=== PATIENT | female | born 1990 | race African-American/Black ===

== ENCOUNTER 2016-09-26 13:21 | Outpatient (CLI) | payer MEDICAID ==
[2016-09-26 14:04] LABS: APPEARANCE,URINE CLOUDY; BILIRUBIN,URINE NEGATIVE (NEGATIVE); GLUCOSE, URINE NEGATIVE (NEGATIVE); KETONES,URINE NEGATIVE (NEGATIVE); LEUKOCYTE ESTERASE,URINE LARGE (NEGATIVE); NITRITE,URINE NEGATIVE (NEGATIVE); PROTEIN,URINE 30 mg/dL (NEGATIVE); URINE SPECIFIC GRAVITY 1.026; UROBILINOGEN,URINE NEGATIVE mg/dL (<2.0)
[2016-09-26 14:23] LABS: URINE BARBITURATES SCREEN NEGATIVE; URINE METHADONE SCREEN NEGATIVE; URINE PHENCYCLIDINE SCREEN NEGATIVE
[2016-09-26] MEDS ORDERED: CEFTRIAXONE INJ 1000 MG VIAL ONE (14:50)
[2016-09-26] MEDS ORDERED: LIDOCAINE 1% INJ-PF (10 MG/ML) 30 ML SDV ONE (14:50)
--- NOTE | 2016-09-26 15:10 | Non Stress Test Report ---
Non Stress Test Datetime Report Generated by CPN: 09/26/2016 15:10 DEMOGRAPHIC EGA NST: 32.1 INDICATION Indication for Study: Other Indication for Study (NST) Other: Labor Check MONITORING Monitor Explained: Monitor Explained; Test Explained; Patient Verbalized Understanding Time on Monitor: 09/26/2016 13:40 Time off Monitor: 09/26/2016 15:08 NST Duration: 88 NST INTERVENTIONS NST Interventions: PO Hydration; Reposition Patient Physician Notified NST: Dr. Higuera Physician Notified NST: Kalen BABY A: [id number] BABY A Movement : Present Contraction Frequency : occasional FHR Baseline : 145 Accelerations : 15X15 Decelerations : None Decelerations : None Variability : Moderate 6-25bpm NST Review: Meets Criteria for Reactive NST NST Review and Verified By : Moses Crum RN NST Results: Reactive NST REPORT Report Trigger: Send Report
[2016-09-26] MEDS ORDERED: CEFTRIAXONE INJ 250 MG VIAL IM ONE (15:30)
[2016-09-26] MEDS ORDERED: HYDROXYZINE PAMOATE 50 MG CAPSULE PO ONE (15:30)
[2016-09-26] MEDS ORDERED: LIDOCAINE 1% INJ-PF (10 MG/ML) 30 ML SDV INJ ONE (15:30)
--- NOTE | 2016-09-27 12:34 | Antepartum Discharge Summary ---
Antepartum DC Datetime Report Generated by CPN: 09/27/2016 12:33 DIET/ACTIVITY/RESTRICTIONS Diet: Regular (09/26/2016 15:46:Evelyn Cabrera RN) Activity: Normal Activity (09/26/2016 15:46:Evelyn Cabrera RN) TEACHING/INSTRUCTIONS/REFERRALS Instructions Given To: Patient/Family (09/26/2016 15:46:Evelyn Cabrera RN) Referrals: None (09/26/2016 15:46:Evelyn Cabrera RN) Educational Materials- Other: UTI (09/26/2016 15:46:Evelyn Cabrera RN) DISCHARGE INFORMATION Discharged AMA: No (09/26/2016 15:46:Evelyn Cabrera RN) Discharge Date/Time: 09/26/2016 15:43 (09/26/2016 15:46:Evelyn Cabrera RN) Discharged To: Home (09/26/2016 15:46:Evelyn Cabrera RN) Discharge Provider Name: Dr. Higuera (09/26/2016 15:46:Evelyn Cabrera RN) Accompanied By: family (09/26/2016 15:46:Evelyn Cabrera RN) Discharge Method: Ambulatory (09/26/2016 15:46:Evelyn Cabrera RN) Condition: Stable (09/26/2016 15:46:Evelyn Cabrera RN) FOLLOW UP INFORMATION Follow Up With: [facility] (09/26/2016 15:46:Evelyn Cabrera RN) Follow Up On: As Scheduled (09/26/2016 15:46:Evelyn Cabrera RN) Comments: Pt states pain 5/5, refusing any pain medicine. Pt noted to be laughing and talking with friends and on cell phone. (09/26/2016 15:46:Evelyn Cabrera RN)
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
--- NOTE | 2016-09-27 12:34 | L&D Flow Sheet ---
LD Flowsheet Datetime Report Generated by CPN: 09/27/2016 12:34 Datetime: 09/26/2016 15:43 Communication Communication Comments: Pt ambulated off floor in stable condition (Evelyn Cabrera, RN) Datetime: 09/26/2016 15:38 Medications Medication Comments: 250mg Rocephin IM in left dorsogluteal site. Pt refusing Vistiril at this time. Pt states she cannot take pills and will just throw them up. (Evelyn Cabrera, RN) Datetime: 09/26/2016 15:06 Communication Communication Comments: Monitors removed (Evelyn Cabrera, RN) Datetime: 09/26/2016 15:00 Uterine Activity Monitor Mode: External (Evelyn Cabrera, RN) Frequency (min): 1 (Evelyn Cabrera, RN) Quality: Mild (Evelyn Cabrera, RN) Duration (sec): 40 (Evelyn Cabrera, RN) Duration Criteria: Less than Two 120 Second Contractions (Evelyn Cabrera, RN) Pattern: Normal: <= 5 Contractions in 10 Minutes (Evelyn Cabrera, RN) Resting Tone (Palpate): Relaxed (Evelyn Cabrera, RN) Assessment A Monitor Mode: External US (Evelyn Rick, RN) FHR Baseline Rate : 145 (Evelyn Cabrera, RN) Variability: Moderate 6-25 bpm (Evelyn Cabrera, RN) Accelerations: 15X15 (Evelyn Cabrera, RN) Decelerations: None (Evelyn Cabrera, RN) Datetime: 09/26/2016 14:30 Uterine Activity Monitor Mode: External (Evelyn Rick, RN) Frequency (min): 1 (Evelyn Cabrera, RN) Quality: Mild (Evelyn Rick, RN) Duration (sec): 40 (Evelyn Rick, RN) Resting Tone (Palpate): Relaxed (Evelyn Cabrera, RN) Assessment A Monitor Mode: External US (Evelyn Cabrera, RN) FHR Baseline Rate : 145 (Evelyn Cabrera, RN) Variability: Moderate 6-25 bpm (Evelyn Cabrera, RN) Accelerations: None (Evelyn Cabrera, RN) Decelerations: None (Evelyn Cabrera, RN) Datetime: 09/26/2016 14:28 Patient Care Comments: apple juice given (Evelyn Cabrera, RN) Datetime: 09/26/2016 14:21 Patient Care Patient Position/Activity: Right Lateral (Evelyn Cabrera, RN) Datetime: 09/26/2016 14:20 Communication Communication Comments: Report given to Dr. Kalen. Orders to give 250mg Rocephin IM and 50mg Vistaril PO and send patient home after strip is reactive (Evelyn Cabrera, RN) Datetime: 09/26/2016 14:04 I/O Interventions: Popsicle (Evelyn Cabrera, RN) Datetime: 09/26/2016 13:44 Pain Pain Scale: 5 (Evelyn Cabrera RN) Pain Presence: Constant (Evelyn Cabrera RN) Pain Type: Sharp (Evelyn Cabrera RN) Pain Location: Perineum (Evelyn Cabrera RN) Pain Assessment Comments: Pt states her pain is 5/5. Pt noted to be laughing and talking freely and texting on phone. (Evelyn Cabrera, RN) Vaginal Exam Vaginal Bleeding: None (Evelyn Cabrera, RN) Maternal Assessment Level of Consciousness: Fully Conscious (Evelyn Cabrera RN) DTR's/Clonus: DTRs 2+; No Clonus (Evelyn Cabrera RN) Headache: Denies (Evelyn Cabrera RN) Breath Sounds, Left: Clear and Equal (Evelyn Cabrera RN) Breath Sounds, Right: Clear and Equal (Evelyn Cabrera RN) Nausea/Vomiting: Denies (Evelyn Cabrera RN) RUQ Epigastric Pain: Denies (Evelyn Cabrera, RN) Teaching Instructional Method: Verbal; Patient Instructed; Family/Support Person Instructed; Verbalized Understanding (Evelyn Cabrera RN) Plan of Care: Plan of Care Discussed (Evelyn Cabrera RN) Unit Routine: [place] to Room; Call Alvarez; Bed; Handwashing; Monitoring; Bathroom Privileges (Evelyn Cabrera RN) Datetime: 09/26/2016 13:42 Vital Signs NBP Sys/Aaliyah/Mean (mmHg): 110 (QS system process) : 59 (QS system process) : 72 (QS system process) Pulse: 102 (QS system process) Datetime: 09/26/2016 13:40 Patient Care Patient Position/Activity: Left Lateral (Evelyn Cabrera RN)
--- NOTE | 2016-09-27 12:34 | L&D Current Admission ---
Current Admit Datetime Report Generated by CPN: 09/27/2016 12:34 ADMISSION INFORMATION Chief Complaint: Pelvic pain (09/26/2016 13:44:MELIA Moore
--- NOTE | 2016-09-27 12:35 | L&D Discharge Summary ---
OB Discharge Summary Datetime Report Generated by CPN: 09/27/2016 12:35 DISCHARGE DIAGNOSIS Diagnosis/Symptoms: Urinary Tract Infection Gestation: 32.1 Number of Babies in Womb: 1 Parity: 1 DIET/ACTIVITY/RESTRICTIONS Diet: Regular Activity: Normal Activity TEACHING/INSTRUCTIONS/REFERRALS Instructions Given To: Patient/Family Referrals: None Educational Materials- Other: UTI DISCHARGE INFORMATION Discharged AMA: No Discharge Date/Time: 09/26/2016 15:43 Discharged To: Home Discharge Provider Name: Dr. Higuera Accompanied By: family Discharge Method: Ambulatory Condition: Stable FOLLOW UP INFORMATION Follow Up With: [facility] Follow Up On: As Scheduled Comments: Pt states pain 5/5, refusing any pain medicine. Pt noted to be laughing and talking with friends and on cell phone.
--- NOTE | 2016-09-28 06:16 | L&D Current Admission ---
Current Admit Datetime Report Generated by CPN: 09/28/2016 06:00 ADMISSION INFORMATION Chief Complaint: Pelvic pain (09/26/2016 13:44:MELIA Moore
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
--- NOTE | 2016-09-29 06:15 | L&D Current Admission ---
Current Admit Datetime Report Generated by CPN: 09/29/2016 06:00 ADMISSION INFORMATION Chief Complaint: Pelvic pain (09/26/2016 13:44:MELIA Moore
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
--- NOTE | 2016-09-30 06:21 | L&D Current Admission ---
Current Admit Datetime Report Generated by CPN: 09/30/2016 06:00 ADMISSION INFORMATION Chief Complaint: Pelvic pain (09/26/2016 13:44:MELIA Moore
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
--- NOTE | 2016-10-01 06:22 | L&D Current Admission ---
Current Admit Datetime Report Generated by CPN: 10/01/2016 06:00 ADMISSION INFORMATION Chief Complaint: Pelvic pain (09/26/2016 13:44:MELIA Moore
--- NOTE | 2016-10-02 06:24 | L&D Current Admission ---
Current Admit Datetime Report Generated by CPN: 10/02/2016 06:00 ADMISSION INFORMATION Chief Complaint: Pelvic pain (09/26/2016 13:44:MELIA Moore
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
--- NOTE | 2016-10-03 06:22 | L&D Current Admission ---
Current Admit Datetime Report Generated by CPN: 10/03/2016 06:00 ADMISSION INFORMATION Chief Complaint: Pelvic pain (09/26/2016 13:44:MELIA Moore
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
--- NOTE | 2016-10-04 06:23 | L&D Current Admission ---
Current Admit Datetime Report Generated by CPN: 10/04/2016 06:00 ADMISSION INFORMATION Chief Complaint: Pelvic pain (09/26/2016 13:44:MELIA Moore
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
--- NOTE | 2016-10-05 06:23 | L&D Current Admission ---
Current Admit Datetime Report Generated by CPN: 10/05/2016 06:00 ADMISSION INFORMATION Chief Complaint: Pelvic pain (09/26/2016 13:44:MELIA Moore
== END 2016-09-26 15:43 | disposition home or self-care (01) ==
LOC: LC 13:21
PROVIDERS: ATTEND Obstetrics & Gynecology
PROC: 4A1HXCZ Monitoring of Products of Conception, Cardiac Rate, External Approach (ICD-10-PCS; principal; 2016-09-26)
DX: O23.43 Unspecified infection of urinary tract in pregnancy, third trimester (principal); Z3A.32 32 weeks gestation of pregnancy
CPT/HCPCS: 59025; 81001; G0479; J3490; J0696; 80307

== ENCOUNTER 2016-11-11 14:47 | Outpatient (CLI) | payer MEDICAID ==
[2016-11-11 15:36] LABS: APPEARANCE,URINE CLEAR; BILIRUBIN,URINE NEGATIVE (NEGATIVE); GLUCOSE, URINE NEGATIVE (NEGATIVE); KETONES,URINE 20 mg/dL (NEGATIVE); LEUKOCYTE ESTERASE,URINE SMALL (NEGATIVE); NITRITE,URINE NEGATIVE (NEGATIVE); PROTEIN,URINE NEGATIVE (NEGATIVE); UROBILINOGEN,URINE NEGATIVE mg/dL (<2.0)
[2016-11-11 15:40] LABS: HEMATOCRIT 34.5 % (36.0-47.0); HEMOGLOBIN 11.9 g/dL (12.0-15.5); HGB HCT DIFFERENCE 1.2; MEAN CORPUSCULAR HEMOGLOBIN 32.1 pg (27.0-33.4); MEAN CORPUSCULAR HGB CONC 34.4 g/dL (32.0-36.0); MEAN CORPUSCULAR VOLUME 93 fl (80-97); RED CELL DISTRIBUTION WIDTH 13.1 % (11.5-14.0); WHITE BLOOD COUNT 5.4 10^3/uL (4.0-10.5)
[2016-11-11 15:55] LABS: ALANINE AMINOTRANSFERASE 62 U/L (9-52); ALBUMIN 3.6 g/dL (3.5-5.0); ALKALINE PHOSPHATASE 88 U/L (38-126); ANION GAP 10 (5-19); ASPARTATE AMINO TRANSFERASE 55 U/L (14-36); BILIRUBIN,TOTAL 0.5 mg/dL (0.2-1.3); BLOOD UREA NITROGEN 5 mg/dL (7-20); CALCIUM 9.9 mg/dL (8.4-10.2); CARBON DIOXIDE 23 mmol/L (22-30); CHLORIDE 100 mmol/L (98-107); CREATININE RESULT 0.69 mg/dL (0.52-1.25); GLUCOSE 76 mg/dL (75-110); LDH 398 U/L (313-618); POTASSIUM 4.2 mmol/L (3.6-5.0); SODIUM 133.1 mmol/L (137-145); TOTAL PROTEIN 7.3 g/dL (6.3-8.2); URIC ACID 3.6 mg/dL (2.5-6.2)
[2016-11-11 15:58] LABS: URINE BARBITURATES SCREEN NEGATIVE; URINE METHADONE SCREEN NEGATIVE; URINE OPIATES LOW NEGATIVE; URINE PHENCYCLIDINE SCREEN NEGATIVE
--- NOTE | 2016-11-11 16:00 | L&D Flow Sheet ---
LD Flowsheet Datetime Report Generated by CPN: 11/11/2016 16:00 Datetime: 11/11/2016 15:49 NBP Sys/Aaliyah/Mean (mmHg): 125 (QS system process) : 58 (QS system process) : 84 (QS system process) Pulse: 101 (QS system process) Communication LaborFlag: Antepartum (QS system process) Datetime: 11/11/2016 15:35 NBP Sys/Aaliyah/Mean (mmHg): 124 (QS system process) : 65 (QS system process) : 90 (QS system process) Pulse: 84 (QS system process) Communication LaborFlag: Antepartum (QS system process) Datetime: 11/11/2016 15:21 Pain Pain Scale: 2 (Cristiana Paintingalivia, ) [facility] Pain Type: Ache ([facility], ) Pain Location: Head ([facility], ) Pain Goal: 0 ([facility], ) Pain Relief Measures: Comfort Measures ([facility]) [facility]: [facility] Bleeding: None [facility] Maternal Assessment Level of Consciousness: Fully Conscious [facility]) DTR's/Clonus: DTRs 2+; No Clonus ([facility], ) Headache: Frontal [facility] Breath Sounds, Left: Clear and Equal (Cristiana Paintingfalivia, RN) Breath Sounds, Right: Clear and Equal (Cristiana Mertfalivia, RN) Nausea/Vomiting: Denies (Cristiana Calvillo, RN) RUQ Epigastric Pain: Denies (Cristiana Paintingfalivia, RN) Communication LaborFlag: Antepartum (QS system process) Datetime: 11/11/2016 15:19 NBP Sys/Aaliyah/Mean (mmHg): 120 (QS system process) : 58 (QS system process) : 83 (QS system process) Pulse: 90 (QS system process) Respirations: 16 (Cristiana Calvillo, RN) Temperature (F): 99.9 (Cristiana Calvillo, RN) Temperature (C): 37.7 (QS system process) Temperature Route: Oral (Cristianathomas Calvillo, RN) Communication LaborFlag: Antepartum (QS system process) Datetime: 11/11/2016 15:15 Patient Position/Activity: Right Lateral; Semi-Fowlers (Cristiana Marhefka, RN) Datetime: 11/11/2016 15:14 Patient Care IV/Blood Work: Labs Drawn (Cristiana Calvillo, RN) Datetime: 11/11/2016 15:00 Vital Signs Stage of : Antepartum (Cristiana Calvillo, RN)
--- NOTE | 2016-11-11 16:22 | Non Stress Test Report ---
Non Stress Test Datetime Report Generated by CPN: 11/11/2016 16:21 DEMOGRAPHIC EGA NST: 38.5 INDICATION Indication for Study: Ordered by Provider MONITORING Monitor Explained: Monitor Explained; Test Explained; Patient Verbalized Understanding Time on Monitor: 11/11/2016 15:15 NST INTERVENTIONS NST Interventions: PO Hydration Physician Notified NST: J. Verma, CNM BABY A: [id number] BABY A Movement : Present Contraction Frequency : X1 FHR Baseline : 145 Accelerations : 15X15 Decelerations : None Variability : Moderate 6-25bpm NST Review: Meets Criteria for Reactive NST NST Review and Verified By : Rome Mcpherson RNC NST Results: Reactive NST REPORT Report Trigger: Send Report
[2016-11-11 16:31] LABS: BAND NEUTROPHILS % (MANUAL) 5 % (3-5); BASOPHILS % (MANUAL) 1 % (0-2); EOSINOPHILS % (MANUAL) 1 % (0-6); LYMPHOCYTES % (MANUAL) 8 % (13-45); TOTAL CELLS COUNTED 100
[2016-11-11 16:32] LABS: POLYCHROMASIA SLIGHT; TOXIC VACUOLATION PRESENT
== END 2016-11-11 16:34 | disposition home or self-care (01) ==
LOC: LC 14:47
PROVIDERS: ATTEND Obstetrics & Gynecology
PROC: 4A1HXCZ Monitoring of Products of Conception, Cardiac Rate, External Approach (ICD-10-PCS; principal; 2016-11-11)
DX: O13.3 Gestational [pregnancy-induced] hypertension without significant proteinuria, third trimester (principal); Z3A.38 38 weeks gestation of pregnancy
CPT/HCPCS: 36415; 59025; 80053; 80307; 81001; 83615; 84550; 85025

== ENCOUNTER 2016-11-14 10:23 | Inpatient (IN) | payer MEDICAID ==
[2016-11-14] MEDS ORDERED: LIDOCAINE 1% INJ-PF (10 MG/ML) 30 ML SDV ONE (10:53)
[2016-11-14] MEDS ORDERED: OXYTOCIN/NORMAL SALINE 20 UNIT/1,000 ML RTUINJ ONE (10:53)
[2016-11-14] MEDS ORDERED: MISOPROSTOL 0.2 MG TABLET ONE (10:53)
[2016-11-14] MEDS ORDERED: MEASLES,MUMPS&RUBELLA VACC/PF 0.5 ML VIAL SUBCUT PRN (11:24)
[2016-11-14] MEDS ORDERED: OXYTOCIN/NORMAL SALINE 1,000 ML IV PRN (11:24)
[2016-11-14] MEDS ORDERED: BENZOCAINE/MENTHOL AEROSOL SPRAY 56 ML TOP PRN (11:24)
[2016-11-14] MEDS ORDERED: ZOLPIDEM TARTRATE 5 MG TABLET PO PRN (11:24)
[2016-11-14] MEDS ORDERED: DIPH/PERTUSS(ACELL)/TETANUS VAC/PF 0.5 ML SYR (>=10YO) IM PRN (11:24)
[2016-11-14] MEDS ORDERED: ACETAMINOPHEN WITH CODEINE #3 TABLET PO PRN ×2 (11:24)
[2016-11-14] MEDS ORDERED: DIBUCAINE 1% OINTMENT 28 GM TP PRN (11:24)
--- NOTE | 2016-11-14 12:01 | L&D Flow Sheet ---
LD Flowsheet Datetime Report Generated by CPN: 11/14/2016 12:00 Datetime: 11/14/2016 11:54 NBP Sys/Aaliyah/Mean (mmHg): 151 (QS system process) : 74 (QS system process) : 102 (QS system process) Pulse: 80 (QS system process) Datetime: 11/14/2016 11:39 NBP Sys/Aaliyah/Mean (mmHg): 142 (QS system process) : 74 (QS system process) : 102 (QS system process) Pulse: 71 (QS system process) Datetime: 11/14/2016 11:34 Frequency (min): 2-3 Minutes apart (Cristiana Calvillo RN) Pain Scale: 5 (Cristiana Calvillo RN) Pain Presence: Intermittent (Cristiana Calvillo RN) Pain Type: Contraction (Cristiana Calvillo RN) Pain Location: Abdomen (Cristiana Calvillo RN) Pain Goal: 0 (Cristiana Calvillo RN) Pain Relief Measures: Comfort Measures (Cristiana Calvillo RN) Pain Coping: Talking Through Contractions; Breathing Through Contractions (Cristiana Calvillo RN) Vaginal Bleeding: Normal Show (Cristiana Calvillo RN) Level of Consciousness: Fully Conscious (Cristiana Calvillo RN) DTR's/Clonus: DTRs 2+; No Clonus (Cristiana Calvillo, RN) Headache: Denies (Cristiana Calvillo, RN) Breath Sounds, Left: Clear and Equal (Cristiana Calvillo, RN) Breath Sounds, Right: Clear and Equal (Cristiana Parkerka, RN) Nausea/Vomiting: Denies (Cristiana Calvillo, RN) RUQ Epigastric Pain: Denies (Cristiana Paintingfka, RN) Datetime: 11/14/2016 11:25 Stage of : Recovery (Cristiana Calvillo RN) Datetime: 11/14/2016 11:24 NBP Sys/Aaliyah/Mean (mmHg): 139 (QS system process) : 70 (QS system process) : 98 (QS system process) Pulse: 75 (QS system process) Datetime: 11/14/2016 11:10 Stage of : Recovery (Cristiana Calvillo RN) Pain Scale: 3 (Cristiana Calvillo RN) Pain Presence: Intermittent (Cristiana Calvillo RN) Pain Type: Burning (Cristiana Calvillo RN) Pain Location: Perineum (Cristiana Calvillo RN) Pain Goal: 0 (Cristiana Calvillo RN) Pain Relief Measures: Comfort Measures (Cristiana Calvillo RN) Datetime: 11/14/2016 11:09 NBP Sys/Aaliyah/Mean (mmHg): 140 (QS system process) : 68 (QS system process) : 98 (QS system process) Pulse: 81 (QS system process) LaborFlag: Antepartum (QS system process) Datetime: 11/14/2016 11:00 Comments: viable baby boy (Cristiana Maryocastafka, RN) Datetime: 11/14/2016 10:59 Monitor Mode: External; Palpation (Cristiana Marhefka, RN) Frequency (min): 2 (Cristiana Calvillo RN) Quality: Strong (Cristiana Calvillo RN) Duration (sec): 60-80 (Cristiana Calvillo RN) Resting Tone (Palpate): Relaxed (Cristiana Calvillo RN) Comments: UTD baseline, Pt pushing with ctxs. RN and Provider remain @ bedside continuously monitoring. (Cristiana Calvillo RN) Datetime: 11/14/2016 10:57 Dilatation (cm): 10.0 (Cristiana Calvillo RN) Effacement (%): 100 (Cristiana Calvillo, FOREST) Station: 0 (Cristiana Calvillo RN) Exam by: Anthony Schrader CNM (Cristiana Calvillo RN) Datetime: 11/14/2016 10:48 Dilatation (cm): 7.0 (Cristiana Calvillo RN) Effacement (%): 100 (Cristiana Calvillo RN) Station: -1 (Cristiana Calvillo RN) Exam by: Anthony Schrader CNM (Cristiana Calvillo RN) Membrane Status: Ruptured (Cristiana Calvillo RN) Membranes Rupture Method: Artificial (Cristiana Calvillo RN) Amniotic Fluid Color: Clear (Cristiana Calvillo RN) Amniotic Fluid Amount: Small (Cristiana Calvillo RN) Vaginal Bleeding: None (Cristiana Calvillo RN) Cervix, Consistency: Soft (Cristiana Calvillo RN) Cervix, Position: Midposition (Cristiana Calvillo RN) Datetime: 11/14/2016 10:39 Patient Care Comments: Pt in bathroom changing into gown (Cristiana Calvillo RN) Datetime: 11/14/2016 10:36 Patient Care Comments: Pt arrived via EMS (Cristiana Calvillo RN)
--- NOTE | 2016-11-14 12:07 | Delivery Summary ---
Del Sum A-C Datetime Report Generated by CPN: 11/14/2016 12:06 ADMISSION DATA Chief Complaint: Uterine Contractions Admission Impression: Term, Intrauterine ; Active Labor DELIVERY PERSONNEL Delivery Doctor:: Ailsa Emmel, CNM Labor and Delivery Nurse:: Cristiana Calvillo, daytime babysitter Nurse:: Elham Bellavance, RNC MATERNAL INFORMATION Delivery Anesthesia: None Medications After Delivery: Pitocin Bolus-Please Comment Meds After Delivery Comment: 20 Units Pitocin/1000ml NS Maternal Complications: None LABOR SUMMARY EDC: 11/20/2016 00:00 No. Babies in Womb: 1 Attempted: No Labor Anesthesia: None LABOR INFORMATION Reason for Induction: Not Applicable Onset of Labor: 11/14/2016 05:00 Complete Dilatation: 11/14/2016 10:57 Oxytocin: N/A Group B Beta Strep: Negative Antibiotics # of Doses: 0 Antibiotics Time of Last Dose: N/A Steroids Given: None Reason Steroids Not Administered: Not Applicable MEMBRANES Membranes Rupture Method: Artificial Rupture of Membranes: 11/14/2016 10:48 Length of Rupture (hr): 0.20 Amniotic Fluid Color: Clear Amniotic Fluid Amount: Small Amniotic Fluid Odor: Normal STAGES OF LABOR Stage 1 hr: 5 Stage 1 min: 57 Stage 2 hr: 0 Stage 2 min: 3 Stage 3 hr: 0 Stage 3 min: 2 Total Time in Labor hr: 6 Total Time in Labor min: 2 VAGINAL DELIVERY Episiotomy: None Laceration Extension: First Degree Laceration Type: Perineal; Vaginal Laceration Repair: No Sponge Count Correct: N/A Sharps Count Correct: N/A BABY A INFORMATION Delivery Date/Time: 11/14/2016 11:00 Method of Delivery: Vaginal Born in Route : No : N/A Forceps: N/A Vacuum Extraction: N/A Shoulder Dystocia : No PRESENTATION/POSITION BABY A Presentation: Cephalic Cephalic Presentation: Vertex Vertex Position: Right Occipital Anterior Breech Presentation: N/A PLACENTA INFORMATION BABY A Placenta Delivery Time : 11/14/2016 11:02 Placenta Method of Delivery: Spontaneous Placenta Status: Delivered SCORES BABY A Heart Rate 1 min: >100 bpm Resp Effort 1 min: Good Cry Reflex Irritability 1 min: Cough or Sneeze or Pulls Away Muscle Tone 1 min: Active Motion Color 1 min: Body [place], Extremities Blue Resuscitation Effort 1 min: Tactile Stimulation SCORE 1 MIN: 9 Heart Rate 5 min: >100 bpm Resp Effort 5 min: Good Cry Reflex Irritability 5 min: Cough or Sneeze or Pulls Away Muscle Tone 5 min: Active Motion Color 5 min: Body [place], Extremities Blue Resuscitation Effort 5 min: Tactile Stimulation SCORE 5 MIN: 9 INFANT INFORMATION BABY A Gestational Age at Delivery: 39.1 Gestational Status: Full Term- 39- 40.6 Weeks Infant Outcome : Liveborn Condition : Stable Infant Sex: Male IDENTIFICATION BABY A Infant Verification Date/Time: 11/14/2016 11:22 ID Band Number: [id number] Mother's Name Verified: Yes RN Verifying Infant: RPuneet Calvillo, RN/ S. Liya, RN CORD INFORMATION BABY A No. Cord Vessels: 3 Nuchal Cord : N/A Cord Blood Taken: Yes-For Storage (Mom's Blood type +) Infant Suction: None ASSESSMENT BABY A Skin to Skin: Yes Infant Care By: Xenia Mcpherson RN Transferred To: Remains with Mother BABY B INFORMATION : N/A
[2016-11-14 12:24] LABS: ABSOLUTE LYMPHOCYTES (AUTO) 0.4 10^3/uL (0.5-4.7); ABSOLUTE MONOCYTES (AUTO) 0.6 10^3/uL (0.1-1.4); ABSOLUTE NEUT (AUTO) 3.9 10^3/uL (1.7-8.2); BASOPHILS % (AUTO) 0.8 % (0-2); EOSINOPHILS % (AUTO) 0.1 % (0-6); HEMATOCRIT 35.3 % (36.0-47.0); HEMOGLOBIN 12.1 g/dL (12.0-15.5); LYMPHOCYTES % (AUTO) 8.4 % (13-45); MEAN CORPUSCULAR HGB CONC 34.2 g/dL (32.0-36.0); MEAN CORPUSCULAR VOLUME 94 fl (80-97); MONOCYTES % (AUTO) 12.3 % (3-13); RED BLOOD COUNT 3.78 10^6/uL (3.72-5.28); RED CELL DISTRIBUTION WIDTH 12.8 % (11.5-14.0); SEGMENTED NEUTROPHILS % (AUTO) 78.4 % (42-78)
[2016-11-14] MEDS ORDERED: IBUPROFEN 800 MG TABLET ONE (12:31)
[2016-11-14] MEDS: IBUPROFEN 800 MG TABLET PO SCH ×2 (12:37→21:45)
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
[2016-11-14] MEDS: DOCUSATE SODIUM 100 MG CAPSULE PO SCH (16:55)
[2016-11-14] MEDS: FERROUS SULFATE 325 MG TABLET PO SCH (16:55)
[2016-11-14 18:27] LABS: APPEARANCE,URINE SLIGHTLY-CLOUDY; BILIRUBIN,URINE NEGATIVE (NEGATIVE); GLUCOSE, URINE NEGATIVE (NEGATIVE); KETONES,URINE NEGATIVE (NEGATIVE); LEUKOCYTE ESTERASE,URINE MODERATE (NEGATIVE); NITRITE,URINE NEGATIVE (NEGATIVE); PROTEIN,URINE 100 mg/dL (NEGATIVE); UROBILINOGEN,URINE NEGATIVE mg/dL (<2.0)
[2016-11-14 18:59] LABS: URINE BARBITURATES SCREEN NEGATIVE; URINE METHADONE SCREEN NEGATIVE; URINE OPIATES LOW NEGATIVE; URINE PHENCYCLIDINE SCREEN NEGATIVE
--- NOTE | 2016-11-14 19:00 | L&D Flow Sheet ---
LD Flowsheet Datetime Report Generated by CPN: 11/14/2016 19:00 Datetime: 11/14/2016 13:09 NBP Sys/Aaliyah/Mean (mmHg): 122 (QS system process) : 63 (QS system process) : 87 (QS system process) Pulse: 82 (QS system process) Datetime: 11/14/2016 12:54 NBP Sys/Aaliyah/Mean (mmHg): 123 (QS system process) : 69 (QS system process) : 90 (QS system process) Pulse: 75 (QS system process) Datetime: 11/14/2016 12:39 NBP Sys/Aaliyah/Mean (mmHg): 108 (QS system process) : 65 (QS system process) : 82 (QS system process) Pulse: 78 (QS system process) Datetime: 11/14/2016 12:24 NBP Sys/Aaliyah/Mean (mmHg): 146 (QS system process) : 82 (QS system process) : 102 (QS system process) Pulse: 77 (QS system process) Datetime: 11/14/2016 12:09 NBP Sys/Aaliyah/Mean (mmHg): 141 (QS system process) : 71 (QS system process) : 100 (QS system process) Pulse: 79 (QS system process) Datetime: 11/14/2016 11:58 Stage of : Recovery (Cristiana Calvillo RN) Datetime: 11/14/2016 11:55 Stage of : Recovery (Cristiana Calvillo RN) Pain Scale: 3 (Cristiana Calvillo RN) Pain Presence: Intermittent (Cristiana Calvillo RN) Pain Type: Cramping; Sharp (Cristiana Calvillo RN) Pain Location: Abdomen; Perineum (Cristiana Calvillo RN) Pain Goal: 0 (Cristiana Calvillo RN) Pain Relief Measures: Comfort Measures (Cristiana Calvillo RN) Datetime: 11/14/2016 11:54 NBP Sys/Aaliyah/Mean (mmHg): 151 (QS system process) : 74 (QS system process) : 102 (QS system process) Pulse: 80 (QS system process) Datetime: 11/14/2016 11:40 Stage of : Recovery ([facility] Datetime: 11/14/2016 11:39 NBP Sys/Aaliyah/Mean (mmHg): 142 (QS system process) : 74 (QS system process) : 102 (QS system process) Pulse: 71 (QS system process) Datetime: 11/14/2016 11:34 Frequency (min): 2-3 Minutes apart (Cristiana Calvillo RN) Pain Scale: 5 (Cristiana Calvillo, RN) Pain Presence: Intermittent (Cristiana Calvillo, RN) Pain Type: Contraction (Cristiana Calvillo, RN) Pain Location: Abdomen (Cristiana Calvillo, RN) Pain Goal: 0 (Cristiana Calvillo RN) Pain Relief Measures: Comfort Measures (Cristiana Calvillo, RN) Pain Coping: Talking Through Contractions; Breathing Through Contractions (Cristiana Calvillo, RN) Vaginal Bleeding: Normal Show (Cristiana Calvillo, RN) Level of Consciousness: Fully Conscious (Cristiana Calvillo, RN) DTR's/Clonus: DTRs 2+; No Clonus (Cristiana Parkerka, RN) Headache: Denies (Cristiana Opalhefka, RN) Breath Sounds, Left: Clear and Equal (Cristiana Paintingfka, RN) Breath Sounds, Right: Clear and Equal (Cristiana Marhefka, RN) Nausea/Vomiting: Denies (Cristiana Marhefka, RN) RUQ Epigastric Pain: Denies (Cristiana Marhefka, RN) Datetime: 11/14/2016 11:25 Stage of : Recovery (Cristiana Calvillo RN) Datetime: 11/14/2016 11:24 NBP Sys/Aaliyah/Mean (mmHg): 139 (QS system process) : 70 (QS system process) : 98 (QS system process) Pulse: 75 (QS system process) Datetime: 11/14/2016 11:10 Stage of : Recovery (Cristiana Calvillo RN) Pain Scale: 3 (Cristiana Calvillo RN) Pain Presence: Intermittent (Cristiana Calvillo RN) Pain Type: Burning (Cristiana Calvillo RN) Pain Location: Perineum (Cristiana Calvillo RN) Pain Goal: 0 (Cristiana Calvillo RN) Pain Relief Measures: Comfort Measures (Cristiana Calvillo RN) Datetime: 11/14/2016 11:09 NBP Sys/Aaliyah/Mean (mmHg): 140 (QS system process) : 68 (QS system process) : 98 (QS system process) Pulse: 81 (QS system process) LaborFlag: Antepartum (QS system process) Datetime: 11/14/2016 11:00 Comments: viable baby boy (Cristiana Calvillo, RN) Datetime: 11/14/2016 10:59 Monitor Mode: External; Palpation (Cristiana Calvillo, RN) Frequency (min): 2 (Cristiana Calvillo RN) Quality: Strong (Cristiana Calvillo RN) Duration (sec): 60-80 (Cristiana Calvillo RN) Resting Tone (Palpate): Relaxed (Cristiana Calvillo RN) Comments: UTD baseline, Pt pushing with ctxs. RN and Provider remain @ bedside continuously monitoring. (Cristiana Calvillo RN) Datetime: 11/14/2016 10:57 Dilatation (cm): 10.0 (Cristiana Calvillo RN) Effacement (%): 100 (Cristiana Calvillo RN) Station: 0 (Cristiana Calvillo RN) Exam by: Anthony Schrader CNM (Cristiana Calvillo RN) Datetime: 11/14/2016 10:48 Dilatation (cm): 7.0 (Cristiana Calvillo RN) Effacement (%): 100 (Cristiana Calvillo RN) Station: -1 (Cristiana Calvillo RN) Exam by: Anthony Schrader CNM (Cristiana Calvillo RN) Membrane Status: Ruptured (Cristiana Calvillo RN) Membranes Rupture Method: Artificial (Cristiana Calvillo RN) Amniotic Fluid Color: Clear (Cristiana Calvillo RN) Amniotic Fluid Amount: Small (Cristiana Calvillo RN) Vaginal Bleeding: None (Cristiana Calvillo RN) Cervix, Consistency: Soft (Cristiana Calvillo RN) Cervix, Position: Midposition (Cristiana Calvillo RN) Datetime: 11/14/2016 10:39 Patient Care Comments: Pt in bathroom changing into gown (Cristiana Calvillo RN) Datetime: 11/14/2016 10:36 Patient Care Comments: Pt arrived via EMS (Cristiana Calvillo RN)
[2016-11-15] MEDS: IBUPROFEN 800 MG TABLET PO SCH ×3 (05:55→21:13)
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
--- NOTE | 2016-11-15 06:01 | L&D Current Admission ---
Current Admit Datetime Report Generated by CPN: 11/15/2016 06:00 ADMISSION INFORMATION Chief Complaint: Contractions (11/14/2016 11:34:MELIA Hogan
[2016-11-15 08:16] LABS: HEMATOCRIT 33.1 % (36.0-47.0); HEMOGLOBIN 11.3 g/dL (12.0-15.5); HGB HCT DIFFERENCE 0.8; MEAN CORPUSCULAR HEMOGLOBIN 31.7 pg (27.0-33.4); MEAN CORPUSCULAR HGB CONC 34.1 g/dL (32.0-36.0); MEAN CORPUSCULAR VOLUME 93 fl (80-97); RED BLOOD COUNT 3.56 10^6/uL (3.72-5.28); RED CELL DISTRIBUTION WIDTH 13.4 % (11.5-14.0); WHITE BLOOD COUNT 4.9 10^3/uL (4.0-10.5)
[2016-11-15] MEDS: SENNOSIDES/DOCUSATE 8.6-50 MG 1 EACH TABLET PO SCH (09:31)
[2016-11-15] MEDS: FERROUS SULFATE 325 MG TABLET PO SCH ×2 (09:31→17:44)
[2016-11-15] MEDS: DOCUSATE SODIUM 100 MG CAPSULE PO SCH ×2 (09:32→17:44)
[2016-11-15] MEDS: PRENATAL VITAMIN W-O CA NO5/FE FUMARATE/FA CAPSULE PO SCH (09:32)
--- NOTE | 2016-11-15 10:12 | PDOC PROGRESS REPORT ---
Subjective-OB Subjective: Post Delivery Day: 1 26 year old. Denies any needs at this time, states lochia is stable, pain is well controlled, voiding without difficulty. Physical Exam (OB) Vital Signs: Temp Pulse Resp BP Pulse Ox 97.6 F 63 17 132/72 H 100 11/15/16 08:24 11/15/16 08:24 11/15/16 08:24 11/15/16 08:24 11/15/16 08:24 Intake & Output 11/14/16 11/15/16 11/16/16 06:59 06:59 06:59 Weight 97.1 kg - Lochia Lochia Amount: Small 10-25 ml Lochia Color: Rubra/Red - Abdomen Description: Soft, Round Hernia Present: No Fundal Description: Firm, Midline Fundal Height: u/u - u/2 Objective-Diagnostic Laboratory: 11/15/16 08:02 11/14/16 11/14/16 11/14/16 11:52 11:52 18:00 WBC 5.0 RBC 3.78 Hgb 12.1 Hct 35.3 L MCV 94 MCH 32.0 MCHC 34.2 RDW 12.8 Plt Count 164 Seg Neutrophils % 78.4 H Lymphocytes % 8.4 L Monocytes % 12.3 Eosinophils % 0.1 Basophils % 0.8 Absolute Neutrophils 3.9 Absolute Lymphocytes 0.4 L Absolute Monocytes 0.6 Absolute Eosinophils 0.0 Absolute Basophils 0.0 Urine Color RED Urine Appearance SLIGHTLY-CLOUDY Urine pH 6.0 Ur Specific [place] 1.010 Urine Protein 100 H Urine Glucose (UA) NEGATIVE Urine Ketones NEGATIVE Urine Blood LARGE H Urine Nitrite NEGATIVE Ur Leukocyte Esterase MODERATE H Blood Type A POSITIVE Antibody Screen NEGATIVE 11/15/16 08:02 WBC 4.9 RBC 3.56 L Hgb 11.3 L Hct 33.1 L MCV 93 MCH 31.7 MCHC 34.1 RDW 13.4 Plt Count 153 Seg Neutrophils % Lymphocytes % Monocytes % Eosinophils % Basophils % Absolute Neutrophils Absolute Lymphocytes Absolute Monocytes Absolute Eosinophils Absolute Basophils Urine Color Urine Appearance Urine pH Ur Specific [place] Urine Protein Urine Glucose (UA) Urine Ketones Urine Blood Urine Nitrite Ur Leukocyte Esterase Blood Type Antibody Screen Assessment and Plan(PN) - Assessment and Plan (1) Vaginal delivery Is this a current diagnosis for this admission?: YesPlan: routine pp care anticipate d/c home - Time Spent with Patient Time with patient: Less than 15 minutes Critical Time spent with patient: Less than 15 minutes Smoking Education Provided: Over 3 minutes Medications reviewed and adjusted accordingly: Yes - Disposition Anticipated Discharge: Home Within: within 24 hours
[2016-11-16] MEDS: IBUPROFEN 800 MG TABLET PO SCH (06:06)
[2016-11-16] MEDS: DOCUSATE SODIUM 100 MG CAPSULE PO SCH (10:08)
[2016-11-16] MEDS: PRENATAL VITAMIN W-O CA NO5/FE FUMARATE/FA CAPSULE PO SCH (10:08)
[2016-11-16] MEDS: FERROUS SULFATE 325 MG TABLET PO SCH (10:08)
[2016-11-16] MEDS: SENNOSIDES/DOCUSATE 8.6-50 MG 1 EACH TABLET PO SCH (10:08)
[2016-11-16 11:58] VITALS: BP 130/80
--- NOTE | 2016-11-16 17:56 | PDOC DISCHARGE SUMMARY ---
Final Diagnosis Discharge Date: 11/16/16 - Final Diagnosis (2) Gestational hypertension Is this a current diagnosis for this admission?: Yes Discharge Data - Discharge Medication Home Medications: Pnv with Ca,No.72/Iron/FA [Pnv Plus Multivit Tab] 1 tab PO DAILY Ibuprofen [Motrin 800 mg Tablet] 800 mg PO Q8HP PRN #90 tablet 11/16/16 Reason(s) for Admission: Onset of Labor Procedures: NST, Ultrasound Intrapartum Procedure(s): Spontaneous Vaginal Delivery Complication(s): Laceration-Vaginal - no repair - [place] Data Baby 1 Male at 1 minute: 9 at 5 minutes: 9 Weight: 3195 kg Home with Mother: Yes Complications: No - Diagnosis Test Laboratory: Temp Pulse Resp BP Pulse Ox 98.0 F 65 17 130/80 H 99 11/16/16 12:48 11/16/16 12:48 11/16/16 12:48 11/16/16 11:41 11/16/16 12:48 11/14/16 11/14/16 11/15/16 11:52 18:00 08:02 RBC 3.78 3.56 L Hgb 12.1 11.3 L Hct 35.3 L 33.1 L Urine Opiates Screen NEGATIVE - Discharge information/Instructions Discharge Activity: Activity As Tolerated, Balance Activity w/Rest, No Lifting Over 10 Pounds, Pelvic Rest, No tub bath Discharge Diet: Regular Disposition: HOME, SELF-CARE Follow [facility] with[facility] in: 1, Weeks - bp check Physical Exam (OB) Vital Signs: Temp Pulse Resp BP Pulse Ox 98.0 F 65 17 130/80 H 99 11/16/16 12:48 11/16/16 12:48 11/16/16 12:48 11/16/16 11:41 11/16/16 12:48 Intake & Output 11/15/16 11/16/16 11/17/16 06:59 06:59 06:59 Intake Total 500 300 Balance 500 300 Weight 97.1 kg - General General Appearance: Appears well In distress: None Note:: Desires BTL for contraception - PIH/Pre-Eclampsia DTR's: 1 + Clonus: Negative Headache: Absent Epigastric Pain: No Visual Changes: No - Episiotomy/Laceration Site Condition: N/A - laceration hemostatic no edema - Lochia Lochia Amount: Small 10-25 ml - small clot with fundal massage. Lochia Color: Rubra/Red - Abdomen Description: Soft Hernia Present: No Fundal Description: Firm, Midline Fundal Height: u/u - u/2 - Respiratory Respiratory Status: No respiratory distress - Extremities Upper extremity: Normal inspection Lower extremities: Normal inspection - Neurological Cognition: Normal Orientation: AAOx4 - Psychological Associated symptoms: Normal affect
== END 2016-11-16 13:26 | disposition home or self-care (01) | DRG 775 ==
LOC: LC 10:23 → LR 10:57 → 2S 13:41
PROVIDERS: ADMIT Student in an Organized Health Care Education/Training Program; ATTEND Student in an Organized Health Care Education/Training Program
PROC: 10E0XZZ Delivery of Products of Conception, External Approach (ICD-10-PCS; principal; 2016-11-14)
PROC: 4A1HXCZ Monitoring of Products of Conception, Cardiac Rate, External Approach (ICD-10-PCS; 2016-11-14)
DX: O13.4 Gestational [pregnancy-induced] hypertension without significant proteinuria, complicating childbirth (principal); O70.1 Second degree perineal laceration during delivery; O99.334 Smoking (tobacco) complicating childbirth; F17.210 Nicotine dependence, cigarettes, uncomplicated; O99.52 Diseases of the respiratory system complicating childbirth; J45.909 Unspecified asthma, uncomplicated
CPT/HCPCS: 36415; 80307; 81005; 85025; 85027; 86592; 86850; 86900; 86901; 88307; J2590; J3490